=== PATIENT | female | born 1985 | race African-American/Black ===

== ENCOUNTER 2016-07-05 04:44 | Emergency (ER) | payer MEDICAID, OTHER ==
[~2016-07-05] VITALS: Ht 165.1 cm; Wt 89.0 kg
[~2016-07-05 04:44] MED LIST: Z.0.NO CURRENT MEDS
[2016-07-05 04:51] VITALS: BP 114/71; PULSE 99; RESP 19; TEMP 97.7; O2SAT 100
[2016-07-05] MEDS ORDERED: SODIUM CHLOR 0.9% 1000 ML INJ 1,000 ML IV SCH (05:21)
[2016-07-05] MEDS ORDERED: ZOFR4TAB3 SL (05:25)
--- NOTE | 2016-07-05 05:25 | PD ---
HPI Chief Complaint: GI Complaint Time Seen by Provider: 05:21 Travel History International Travel<30 days: No Contact w/Intl Traveler<30days: No Traveled to known affect area: No History of Present Illness HPI The patient is 30 years old. She arrives by EMS. Tonight she drank alcohol. She is visiting from [place]. EMS picked her up at a private residence. She was observed projectile vomiting. Initially her GCS was 3 however with noxious stimulus and improved to 15. She denies drug abuse. She is past medical history of asthma. She has an allergy to oxycodone. 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 BEER AND WINE) Tobacco Use: No Substance Use: No Allergies-Medications (Allergen,Severity, Reaction): Coded Allergies: Oxycontin (Verified Allergy, Severe, HIVES, 07/05/16) Reported Meds & Prescriptions Reported Meds & Active Scripts Active Zofran Odt (Ondansetron Odt) 4 Mg Tab 4 Mg SL Q8HR PRN Review of Systems ROS Limitations: Intoxication Physical Exam Narrative GENERAL: 30-year-old female well nourished well-developed EtOH on breath SKIN: Warm and dry. HEAD: Atraumatic. Normocephalic. EYES: Pupils equal and round. No scleral icterus. No injection or drainage. ENT: No nasal bleeding or discharge. Mucous membranes pink and moist. NECK: Trachea midline. No JVD. CARDIOVASCULAR: Regular rate and rhythm. No murmur appreciated. RESPIRATORY: No accessory muscle use. Clear to auscultation. Breath sounds equal bilaterally. GASTROINTESTINAL: Abdomen soft, non-tender, nondistended. Hepatic and splenic margins not palpable. MUSCULOSKELETAL: No obvious deformities. No clubbing. No cyanosis. No edema. NEUROLOGICAL: EtOH affect. No focal cranial nerve deficit. Moving all extremities. PSYCHIATRIC: EtOH affect. EtOH on breath. Data Data Last Documented VS Vital Signs Date Time Temp Pulse Resp B/P Pulse Ox O2 Delivery O2 Flow Rate FiO2 07/05/16 04:57 19 07/05/16 04:51 97.7 99 114/71 100 Vital signs reviewed Orders Basic Metabolic Panel (Bmp) (07/05/16 05:21) Complete Blood Count With Diff (07/05/16 05:21) Iv Access Insert/Monitor (07/05/16 05:21) Ecg Monitoring (07/05/16 05:21) Oximetry (07/05/16 05:21) Ondansetron Inj (Zofran Inj) (07/05/16 05:30) Sodium Chlor 0.9% 1000 Ml Inj (Ns 1000 M (07/05/16 05:21) Sodium Chloride 0.9% Flush (Ns Flush) (07/05/16 05:30) Alcohol (Ethanol) (07/05/16 05:21) Albuterol Neb (Albuterol Neb) (07/05/16 06:00) Prochlorperazine Inj (Compazine Inj) (07/05/16 06:15) Labs Laboratory Tests Test 07/05/16 05:30 White Blood Count 5.1 TH/MM3 Red Blood Count 4.08 MIL/MM3 Hemoglobin 12.4 GM/DL Hematocrit 37.0 % Mean Corpuscular Volume 90.9 FL Mean Corpuscular Hemoglobin 30.4 PG Mean Corpuscular Hemoglobin 33.5 % Concent Red Cell Distribution Width 13.5 % Platelet Count 237 TH/MM3 Mean Platelet Volume 9.6 FL Neutrophils (%) (Auto) 30.8 % Lymphocytes (%) (Auto) 59.1 % Monocytes (%) (Auto) 8.7 % Eosinophils (%) (Auto) 0.8 % Basophils (%) (Auto) 0.6 % Neutrophils # (Auto) 1.6 TH/MM3 Lymphocytes # (Auto) 3.0 TH/MM3 Monocytes # (Auto) 0.4 TH/MM3 Eosinophils # (Auto) 0.0 TH/MM3 Basophils # (Auto) 0.0 TH/MM3 CBC Comment DIFF FINAL Differential Comment Sodium Level 142 MEQ/L Potassium Level 3.3 MEQ/L Chloride Level 109 MEQ/L Carbon Dioxide Level 19.6 MEQ/L Anion Gap 13 MEQ/L Blood Urea Nitrogen 13 MG/DL Creatinine 1.06 MG/DL Estimat Glomerular Filtration 73 ML/MIN Rate Random Glucose 107 MG/DL Calcium Level 7.9 MG/DL Ethyl Alcohol Level 188 MG/DL [facility] Medical Decision Making Medical Screen Exam Complete: Yes Emergency Medical Condition: Yes Differential Diagnosis Alcohol poisoning, electrolyte imbalance, dehydration, alcoholism Narrative Course CBC & BMP Diagram 07/05/16 05:30 EtOH 188 The patient improved with IV Zofran. Shortly thereafter she began vomiting again Compazine was given. In the interim she developed some wheezing requested a nebulizer treatment. We'll send the patient was Zofran. Diagnosis Primary Impression: ALCOHOL ABUSE WITH INTOXICATION, UNCOMPLICATED Additional Impressions: Nausea & vomiting Qualified Code: R11.2 - Nausea and vomiting, intractability of vomiting not specified, unspecified vomiting type Wheezing Referrals: Primary Care Physician 2 days Additional Instructions: You have a choice when it comes to health care, and we are glad that you chose [facility]. Hopefully, we have met your expectations on today's visit. You are welcome to return to [facility] at any time, as we are committed to meeting the health care needs of our community. Med/Other Pt SpecificInfo: Prescription(s) given Scripts Ondansetron Odt (Zofran Odt)4 Mg Tab4 Mg SL Q8HR PRN (Nausea/Vomiting) #10 TAB Ref 0 Prov:Ari Tanner MD 07/05/16 Disposition: 01 DISCHARGE HOME Condition: Stable Ari Tanner MD Jul 05, 2016 05:25
[2016-07-05] MEDS ORDERED: SODIUM CHLORIDE 0.9% FLUSH 5 ML FLUSH IVF PRN (05:30)
[2016-07-05] MEDS ORDERED: ONDANSETRON HCL 4 MG/2 ML VIAL IVP ONE (05:30)
[2016-07-05 05:51] LABS: AUTOMATED NEUTROPHIL # 1.6 TH/MM3 (1.8-7.7); BASOPHIL % 0.6 % (0.0-2.0); EOSINOPHIL % 0.8 % (0.0-4.0); HEMO FLAGS DIFF FINAL; LYMPH % 59.1 % (9.0-44.0); MEAN CELL VOLUME 90.9 FL (80.0-100.0); MEAN CORPUSCULAR HEMOGLOBIN 30.4 PG (27.0-34.0); MEAN CORPUSCULAR HGB CONC 33.5 % (32.0-36.0); MONO % 8.7 % (0.0-8.0); NEUT % 30.8 % (16.0-70.0); PLATELET COUNT 237 TH/MM3 (150-450); RED BLOOD COUNT 4.08 MIL/MM3 (4.00-5.30); RED CELL DISTRIBUTION WIDTH 13.5 % (11.6-17.2); WHITE BLOOD COUNT 5.1 TH/MM3 (4.0-11.0)
[2016-07-05] MEDS ORDERED: RESP: ALBUTEROL 2.5 MG/3 ML NEB (SCH) INH ONE (06:00)
[2016-07-05 06:03] LABS: BICARBONATE 19.6 MEQ/L (21.0-32.0); POTASSIUM 3.3 MEQ/L (3.5-5.1)
[2016-07-05] MEDS ORDERED: PROCHLORPERAZINE INJ 10 MG/2 ML VIAL IVS ONE (06:15)
[2016-07-05 06:50] VITALS: O2SAT 100
[2016-07-05 07:31] VITALS: BP 120/83; PULSE 96; RESP 16; O2SAT 97
== END 2016-07-05 07:33 | disposition home or self-care (01) ==
LOC: NEPC 04:44
DX: F10.120 Alcohol abuse with intoxication, uncomplicated (principal); R11.2 Nausea with vomiting, unspecified; R06.2 Wheezing
CPT/HCPCS: 80048; 80307; 85025; 94664; 96374; 96375; 99284; J0780; J2405; J7030; J7613